=== PATIENT | female | born 1965 | race Caucasian/White ===

== ENCOUNTER 2019-04-07 14:45 | Outpatient (REF) | payer OTHER, SELFPAY ==
[2019-04-07 19:03] LABS: Chol HDL Ratio 3.72 mg/dL (0.0-4.40); Cholesterol 212 mg/dL (0-200); Glucose 100 mg/dL (65-115); HDL Cholesterol 57 mg/dL (60-100); LDL Cholesterol Calculated 133 mg/dL (50-129); LDL HDL Ratio 2.33 RATIO (0.00-3.22); Triglycerides 112 mg/dL (0-150)
[2019-04-07 21:20] LABS: Estmated Average Glucose 111; Hemoglobin A1C 5.5 % (4.0-6.0)
== END 2019-04-07 14:46 | disposition home or self-care (01) ==
LOC: LAB 14:45
PROVIDERS: Family Provider General Practice; Visit Provider Dermatology
DX: Z13.9 Encounter for screening, unspecified (principal)
CPT/HCPCS: 80061; 82947; 83036

== ENCOUNTER → 2020-04-05 09:26 | Outpatient (BNVA) | payer OTHER, SELFPAY | PROVIDERS: Family Provider General Practice; Visit Provider Family Medicine | DX: Z13.6 Encounter for screening for cardiovascular disorders (principal) | CPT/HCPCS: 80061; 82947; 83036 ==

== ENCOUNTER → 2024-12-21 16:39 | Outpatient (BNVA) | payer BC, SELFPAY | PROVIDERS: Family Provider General Practice; Visit Provider Nurse Practitioner Family | DX: R10.9 Unspecified abdominal pain (principal) | CPT/HCPCS: 80053; 82150; 83690; 85025; 86308 ==

== ENCOUNTER 2024-12-22 06:01 | Outpatient (CLI) | payer BC, SELFPAY ==
--- NOTE | 2024-12-22 06:00 | US_ITS ---
WS: [id number] RIGHT UPPER QUADRANT ULTRASOUND HISTORY: R10.9 - Unspecified abdominal pain COMPARISON: None available. Liver: 12.4 cm in length. Heterogeneous liver. Normal size liver with no mass. No intrahepatic duct dilatation. Portal Vein: Normal hepatopetal flow with monophasic waveform. Gallbladder: Prior cholecystectomy. CBD: 0.4 cm Pancreas: Poorly visualized pancreas. Pancreas does appear echogenic where visualized. No adjacent fluid. Right kidney: 9.2 cm in length. Normal size and echogenicity. No hydronephrosis or mass. Aorta and IVC: Unremarkable abdominal aorta and IVC. No ascites. US/US abdomen limited [id number] IMPRESSION: 1. Prior cholecystectomy. 2. Heterogeneous liver. No mass identified. Suspect chronic hepatocellular dis ease and/or changes of hepatic steatosis.
== END 2024-12-22 06:02 | disposition home or self-care (01) ==
PROVIDERS: Family Provider General Practice; PCP Nurse Practitioner Family; Visit Provider Nurse Practitioner Family
DX: R10.9 Unspecified abdominal pain (principal); Z87.19 Personal history of other diseases of the digestive system; K76.89 Other specified diseases of liver; K86.89 Other specified diseases of pancreas; K76.0 Fatty (change of) liver, not elsewhere classified
CPT/HCPCS: 76705